=== PATIENT | female | born 1995 | race Caucasian/White ===

== ENCOUNTER 2019-05-15 16:03 | Outpatient (CLI) | payer OTHER, SELFPAY | END 2019-05-15 16:04 | disposition home or self-care (01) | PROVIDERS: Visit Provider Obstetrics & Gynecology | DX: N92.6 Irregular menstruation, unspecified (principal) | CPT/HCPCS: 36415; 84146; 84443 ==

== ENCOUNTER 2020-05-04 17:04 | Outpatient (CLI) | payer OTHER, SELFPAY | END 2020-05-04 17:05 | disposition home or self-care (01) | LOC: ANHLAB 17:08 | PROVIDERS: PCP Internal Medicine; Visit Provider Obstetrics & Gynecology | DX: O20.0 Threatened abortion (principal) | CPT/HCPCS: 36415; 84702 ==

== ENCOUNTER 2020-05-07 12:50 | Outpatient (CLI) | payer OTHER, SELFPAY | END 2020-05-07 12:51 | disposition home or self-care (01) | LOC: ANHLAB 12:52 | PROVIDERS: PCP Internal Medicine; Visit Provider Obstetrics & Gynecology | DX: O20.0 Threatened abortion (principal) | CPT/HCPCS: 36415; 84702 ==

== ENCOUNTER 2021-02-02 17:18 | Outpatient (CLI) | payer OTHER, SELFPAY ==
[2021-02-02 18:16] LABS: Influenza A QL RT-PCR Negative (Negative); Influenza B QL RT-PCR Negative (Negative); SARS-CoV-2 RNA PCR Negative (Negative)
== END 2021-02-02 17:19 | disposition home or self-care (01) ==
LOC: CHSLAB 17:21
PROVIDERS: PCP Internal Medicine; Visit Provider Internal Medicine
DX: J06.9 Acute upper respiratory infection, unspecified (principal); Z20.822 Contact with and (suspected) exposure to COVID-19
CPT/HCPCS: 87502; C9803; U0003; U0005

== ENCOUNTER 2021-07-12 12:14 | Outpatient (CLI) | payer OTHER, SELFPAY ==
[2021-07-17 08:20] LABS: Progesterone 11.1 ng/mL (***)
== END 2021-07-12 12:15 | disposition home or self-care (01) ==
LOC: ANHLAB 12:15
PROVIDERS: PCP Internal Medicine; Visit Provider Obstetrics & Gynecology
DX: N92.6 Irregular menstruation, unspecified (principal)
CPT/HCPCS: 36415; 84144

== ENCOUNTER 2022-07-24 09:53 | Emergency (ER) | payer OTHER, SELFPAY ==
--- NOTE | ~2022-07-24 | US_ITS ---
EXAMINATION: US OB <=14 wk fetus w TV DATE: 07/24/2022 11:59 INDICATION: Left lower quadrant abdominal pain. TECHNIQUE: Real-time transabdominal and transvaginal pelvic ultrasound was performed. COMPARISON: None. FINDINGS: TRANSABDOMINAL ULTRASOUND: The uterus measures 7.6 x 4.9 x 5.5 cm. TRANSVAGINAL ULTRASOUND: There is no visible intrauterine gestational sac. The endometrial complex me asures 3 mm in thickness. The right ovary measures 2.9 x 1.8 x 2.3 cm. The left ovary measures 3.3 x 2.1 x 2.8 cm. There is physiologic free fluid in the pelvis. IMPRESSION: 1. No visible intrauterine gestational sac, which may be normal in early . Spontaneous abor tion and ectopic are not excluded. Serial beta-hCGs are recommended. Reviewed, dictated and finalized at location A. IMPRESSION: 1. No visible intrauterine gestational sac, which may be normal in early pregn philip. Spontaneous and ectopic are not excluded. Serial beta- hCGs are recommended.
[2022-07-24 09:59] VITALS: BP 144/73; PULSE 88; RESP 16; TEMP 36.9; O2SAT 100
--- NOTE | 2022-07-24 10:08 | ED.GENADULT ---
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 Patient has hx of ectopic in 2020 and underwent right salpingectomy under Dr. Otto. She had a hysterosalpingogram last year and was told that her left tube had damage and scar tissue. Patient reported having pain in her left lower abdomen, fairly severe on 07/18. Pain resolved on its own. Patient had a positive home test yesterday. She reported having recurrent pain in her left lower abdomen last night, again fairly severe and lasting longer than the previous episode. Patient is concerned she may have a another ectopic . She also noticed very slight vaginal spotting last night. Denies filling pad. Denied any further bleeding today. Denies fevers, nausea, vomiting, diarrhea, constipation, urinary symptoms. Related Data Allergies Allergy/AdvReac Type Severity Reaction Status Date / Time Penicillins Allergy Intermediate HIVES Verified 07/24/22 10:45 Review of Systems Review of Systems: CONSTITUTIONAL: Denies fever, chills, or sweats. CARDIOVASCULAR: Denies chest pain. RESPIRATORY: Denies dyspnea. GASTROINTESTINAL: See HPI. GENITOURINARY: See HPI. SKIN: Denies rash or itching. MUSCULOSKELETAL: Denies back pain, joint pain, or myalgia. All systems reviewed & are unremarkable except as noted in HPI and below PMFSH Past Medical History Medical History (Updated 07/24/22 @ 13:18 by Ysabel Littlejohn PA-C) History of ectopic Surgical History Surgical History (Updated 07/24/22 @ 10:33 by Ysabel Littlejohn PA-C) History of unilateral salpingectomy Social History Social History (Updated 07/24/22 @ 13:31 by Ysabel Littlejohn PA-C) Smoking status: Never smoker Exam Narrative: GENERAL: Well appearing, morbidly obese with BMI of 41, non-toxic, in no acute distress. HEAD: Normocephalic, atraumatic. NECK: Supple. No adenopathy, no masses. RESPIRATORY: Airway patent, respirations nonlabored. Clear to auscultation bilaterally, no rales, rhonchi, wheezing. CARDIOVASCULAR: Regular rate and rhythm without murmurs, rubs, or gallops. Radial pulses 2+ and equal bilaterally. ABDOMINAL: Soft, very minimal discomfort in LLQ/lower left pelvic region, nondistended, no hepatosplenomegaly. Normoactive BS. MUSCULOSKELETAL: Moves all extremities. Strength/ROM intact without gross deformities. SKIN: Warm, dry, normal color. No rashes. NEURO: A&O X3. Speech clear. Cranial nerves II-XII grossly intact. Steady gait. No ataxic movements. PSYCHIATRIC: Appropriate mood and affect. Normal interaction. Course Vital Signs Vital signs: Vital Signs Temperature 98.4 F 07/24/22 09:59 Pulse Rate 88 07/24/22 09:59 Respiratory Rate 16 07/24/22 09:59 Blood Pressure 144/73 H 07/24/22 09:59 Pulse Oximetry 100 07/24/22 09:59 Oxygen Delivery Room Air 07/24/22 09:59 Temperature 98.4 F 07/24/22 09:59 Pulse Rate 86 07/24/22 13:47 Respiratory Rate 18 07/24/22 13:47 Blood Pressure 142/70 H 07/24/22 13:47 Pulse Oximetry 100 07/24/22 13:47 Oxygen Delivery Room Air 07/24/22 09:59 Medical Decision Making MDM Narrative Medical decision making narrative: Patient presented to ED with report of LLQ abdominal pain, + preg test at home, Hx of ectopic, reports known dysfunction of remaining fallopian tube. VSS upon arrival. Patient in no acute distress. Resting comfortably. Minimal discomfort on abdominal exam. Bedside preg + here. Beta quant 941. US obtained and no ectopic or IUP seen. No abnormal findings. Recommend serial monitoring. Patient reported very minimal bleeding last night, no further bleeding today. Will
[2022-07-24 10:40] LABS: Basophils Percent Auto 0.2 % (0.2-1.2); Eosinophils Absolute Auto 0.1 K/mm3 (0-0.3); Eosinophils Percent Auto 2.2 % (0-4.4); Immature Granulocyte Absolute 0.01 K/mm3 (0.00-0.031); Immature Granulocyte Percent A 0.2 % (0-0.5); Lymphocytes Absolute Auto 1.12 K/mm3 (0.9-3.2); Lymphocytes Percent Auto 24.9 % (18.3-44.2); Mean Corpuscular HGB Conc 30.8 g/dl (32-36); Mean Corpuscular Hemoglobin 26.3 pg (26-34); Mean Corpuscular Volume 85.5 fl (80-100); Mean Platelet Volume 10.1 fl (7.4-10.4); Monocytes Absolute Auto 0.3 K/mm3 (0.1-0.6); Monocytes Percent Auto 7.1 % (2.6-8.5); Neutrophils Absolute Auto 2.9 K/mm3 (1.3-6.7); Neutrophils Percent Auto 65.4 % (45.5-73.1); Platelet Count Result 229 k/mm3 (150-375); Red Blood Count 4.56 M/mm3 (4.2-5.4); White Blood Count 4.5 K/mm3 (4.5-10.0)
[2022-07-24 10:52] LABS: Alanine Aminotransferase 23 U/L (6-35); Albumin Level 4.3 g/dL (3.5-5.1); Alkaline Phosphatase 69 U/L (38-126); Anion Gap 5 mmol/L (8-16); Aspartate Amino Transferase 21 U/L (14-36); Bilirubin,Total 0.5 mg/dL (0.2-1.3); Blood Urea Nitrogen 9 mg/dL (7-17); Carbon Dioxide 30 mmol/L (22-30); Chloride 103 mmol/L (98-107); Estimated CRCL calculation 124 ml/min; Estimated Glomerular Filt Rate > 60; Glucose 103 mg/dL (65-110); Potassium 3.8 mmol/L (3.4-5.0); Sodium 138 mmol/L (137-145)
[2022-07-24 11:47] LABS: Appearance Urine Cloudy (Clear); Bacteria Urine Rare /hpf; Bilirubin Urine Negative (Negative); Blood Urine 3+ (Negative); Color Urine Yellow (Yellow); Glucose Urine UA Negative (Negative); Ketones Urine Negative (Negative); Leukocyte Esterase Ur Trace LEU/UL (Negative); Nitrate Urine Negative (Negative); Non Pathogenic Casts 0-2; Protein Urine Trace mg/dL (Negative); RBC Urine 21-50 /hpf (0-2); Specific Grav Ur 1.019 (1.001-1.035); Squamous Epithelial Cell Urine Moderate /hpf (Few); WBC Urine 0-5 /hpf
[2022-07-24 11:52] LABS: Add Urine Microscopic? YES
[2022-07-24 13:47] VITALS: BP 142/70; PULSE 86; RESP 18; O2SAT 100
== END 2022-07-24 13:50 | disposition home or self-care (01) ==
PROVIDERS: Emergency Provider Physician Assistant; PCP Obstetrics & Gynecology
DX: O20.0 Threatened abortion (principal); Z90.79 Acquired absence of other genital organ(s); Z3A.01 Less than 8 weeks gestation of pregnancy
CPT/HCPCS: 36415; 76801; 76817; 80053; 81001; 81025; 84702; 85025; 85461; 86850; 86900; 86901; 87086; 87088; 99284

== ENCOUNTER 2022-07-26 11:12 | Outpatient (CLI) | payer OTHER, SELFPAY | END 2022-07-26 11:13 | disposition home or self-care (01) | LOC: ANHLAB 11:14 | PROVIDERS: PCP Obstetrics & Gynecology; Visit Provider Physician Assistant | DX: O20.0 Threatened abortion (principal) | CPT/HCPCS: 36415; 84702 ==

== ENCOUNTER → 2022-07-31 13:53 | Outpatient (CLI) | payer OTHER, SELFPAY ==
--- NOTE | ~2022-07-31 | US_ITS ---
EXAMINATION: US OB <=14 wk fetus w TV DATE: 07/31/2022 14:23 INDICATION: History of ectopic . TECHNIQUE: Real-time transabdominal and transvaginal obstetric ultrasound. FINDINGS: Comparison to 07/24/2022 The uterus measures 7.7 x 3.6 x 4.3 cm. There is an intrauterine gestational sac, with pole jorge ntified. No visible intrauterine is identified. Endometrium measures 9 mm. The right ovary is unremarkable measuring 2.4 x 2.2 x 2.3 cm. The left ovary measures 3 x 1.9 x 2.8 cm and contains a complex partially cystic mass inferior margin of the ovary measuring 3.5 cm. IMPRESSION: 1. No evidence for intrauterine . Complex partially cystic mass inferior margin of the left ovary measuring up to 3.5 cm. Cannot exclude ectopic . Recommend follow-up with serial quant itative beta-hCG levels and ultrasound as clinically indicated. Reviewed, dictated and finalized at location B. IMPRESSION: 1. No evidence for intrauterine . Complex partially cystic mass inferi or margin of the left ovary measuring up to 3.5 cm. Cannot exclude ectopic preg catie. Recommend follow-up with serial quantitative beta-hCG levels and ultraso und as clinically indicated.
== END ==
PROVIDERS: PCP Internal Medicine; Visit Provider Obstetrics & Gynecology
DX: O09.11 Supervision of pregnancy with history of ectopic pregnancy, first trimester (principal); Z3A.00 Weeks of gestation of pregnancy not specified
CPT/HCPCS: 76801; 76817

== ENCOUNTER 2022-08-01 14:37 | Outpatient (CLI) | payer OTHER, SELFPAY ==
[2022-08-01 14:55] LABS: Basophils Percent Auto 0.6 % (0.2-1.2); Eosinophils Absolute Auto 0.2 K/mm3 (0-0.3); Eosinophils Percent Auto 3.2 % (0-4.4); Hematocrit 38.4 % (37.0-47.0); Immature Granulocyte Absolute 0.01 K/mm3 (0.00-0.031); Immature Granulocyte Percent A 0.1 % (0-0.5); Lymphocytes Absolute Auto 1.87 K/mm3 (0.9-3.2); Lymphocytes Percent Auto 27.3 % (18.3-44.2); Mean Corpuscular HGB Conc 31.3 g/dl (32-36); Mean Corpuscular Hemoglobin 26.4 pg (26-34); Mean Corpuscular Volume 84.6 fl (80-100); Mean Platelet Volume 10.4 fl (7.4-10.4); Monocytes Absolute Auto 0.5 K/mm3 (0.1-0.6); Monocytes Percent Auto 7.6 % (2.6-8.5); Neutrophils Absolute Auto 4.2 K/mm3 (1.3-6.7); Neutrophils Percent Auto 61.2 % (45.5-73.1); Platelet Count Result 264 k/mm3 (150-375); Red Blood Count 4.54 M/mm3 (4.2-5.4); Red Cell Distribution Width 12.9 % (11.5-14.5); White Blood Count 6.9 K/mm3 (4.5-10.0)
[2022-08-01 17:05] LABS: Alanine Aminotransferase 19 U/L (6-35); Albumin Level 4.6 g/dL (3.5-5.1); Alkaline Phosphatase 78 U/L (38-126); Anion Gap 7 mmol/L (8-16); Aspartate Amino Transferase 25 U/L (14-36); Bilirubin,Total 0.4 mg/dL (0.2-1.3); Blood Urea Nitrogen 17 mg/dL (7-17); Calcium 9.5 mg/dL (8.4-10.2); Carbon Dioxide 29 mmol/L (22-30); Chloride 101 mmol/L (98-107); Estimated Glomerular Filt Rate > 60; Glucose 94 mg/dL (65-110); Potassium 3.9 mmol/L (3.4-5.0); Sodium 137 mmol/L (137-145)
== END 2022-08-01 14:38 | disposition home or self-care (01) ==
LOC: ANHLAB 14:39
PROVIDERS: PCP Obstetrics & Gynecology; Visit Provider Obstetrics & Gynecology
DX: O00.90 Unspecified ectopic pregnancy without intrauterine pregnancy (principal)
CPT/HCPCS: 36415; 80053; 84702; 85025

== ENCOUNTER 2022-08-04 12:38 | Outpatient (CLI) | payer OTHER, SELFPAY | END 2022-08-04 12:39 | disposition home or self-care (01) | LOC: ANHLAB 12:39 | PROVIDERS: PCP Obstetrics & Gynecology; Visit Provider Obstetrics & Gynecology | DX: O00.90 Unspecified ectopic pregnancy without intrauterine pregnancy (principal); Z3A.00 Weeks of gestation of pregnancy not specified | CPT/HCPCS: 36415; 84702 ==

== ENCOUNTER → 2022-08-07 14:52 | Outpatient (CLI) | payer OTHER, SELFPAY ==
--- NOTE | ~2022-08-07 | US_ITS ---
EXAMINATION: US OB <=14 wk fetus w TV DATE: 08/07/2022 15:36 INDICATION: Unspecified ectopic TECHNIQUE: Real-time pelvic ultrasound utilizing both a transvaginal and transabdominal probe was pe rformed. The interpreting radiologist was not present for the study. COMPARISON: None. FINDINGS: The uterus measures 7.7 x 3.6 x 4.1 cm. The endometrial complex measures 4 mm diameter with no evide nt intrauterine gestational sac. The crown rump length measures , which correlates with an estimated gestational age of weeks and days. heart motion is identified measuring beats per minute (bpm) by M-mode Doppler. The right ovary measures 2.5 x 1.6 x 1.9 cm. The left ovary measures 3.1 x 1.7 x 2.6 cm. There is sma ll amount of free fluid about the left adnexa surrounding a 2.2 x 1.6 x 1.3 cm centrally cystic mass with approximately 4 mm thick echogenic wall surrounding an 11 x 6 x 9 mm anechoic central cystic reg ion which remain suspicious for ectopic . No evident yolk sac or pole within the cysti c structure. IMPRESSION: 1. No evident intrauterine gestational sac which given the persistently elevating beta-hCG levels rem ains concerning for ectopic .. 2. 2.2 cm centrally cystic mass at the left adnexa which is suspicious for ectopic although the centrally cystic region remains without evident yolk sac or pole for more definitive deter mination. Reviewed, dictated and finalized at location A. IMPRESSION: 1. No evident intrauterine gestational sac which given the persistently elevati ng beta-hCG levels remains concerning for ectopic .. 2. 2.2 cm centrally cystic mass at the left adnexa which is suspicious for ecto pic although the centrally cystic region remains without evident yolk sac or pole for more definitive determination.
== END ==
PROVIDERS: PCP Internal Medicine; Visit Provider Obstetrics & Gynecology
DX: O00.90 Unspecified ectopic pregnancy without intrauterine pregnancy (principal)
CPT/HCPCS: 76801; 76817

== ENCOUNTER 2022-08-08 12:50 | Outpatient (CLI) | payer OTHER, SELFPAY | END 2022-08-08 12:51 | disposition home or self-care (01) | LOC: ANHLAB 12:51 | PROVIDERS: PCP Internal Medicine; Visit Provider Obstetrics & Gynecology | DX: O00.90 Unspecified ectopic pregnancy without intrauterine pregnancy (principal); Z3A.00 Weeks of gestation of pregnancy not specified | CPT/HCPCS: 36415; 84702 ==

== ENCOUNTER 2022-08-12 12:00 | Outpatient (CLI) | payer OTHER, SELFPAY | END 2022-08-12 12:01 | disposition home or self-care (01) | LOC: ANHLAB 12:01 | PROVIDERS: PCP Internal Medicine; Visit Provider Obstetrics & Gynecology | DX: O00.90 Unspecified ectopic pregnancy without intrauterine pregnancy (principal); Z3A.00 Weeks of gestation of pregnancy not specified | CPT/HCPCS: 36415; 84702 ==

== ENCOUNTER 2022-08-18 13:42 | Outpatient (CLI) | payer OTHER, SELFPAY | END 2022-08-18 13:43 | disposition home or self-care (01) | LOC: ANHLAB 13:44 | PROVIDERS: PCP Internal Medicine; Visit Provider Obstetrics & Gynecology | DX: O00.90 Unspecified ectopic pregnancy without intrauterine pregnancy (principal) | CPT/HCPCS: 36415; 84702 ==

== ENCOUNTER 2022-08-24 12:44 | Outpatient (CLI) | payer OTHER, SELFPAY | END 2022-08-24 12:45 | disposition home or self-care (01) | LOC: ANHLAB 12:45 | PROVIDERS: PCP Internal Medicine; Visit Provider Obstetrics & Gynecology | DX: O00.90 Unspecified ectopic pregnancy without intrauterine pregnancy (principal) | CPT/HCPCS: 36415; 84702 ==

== ENCOUNTER 2022-09-11 11:57 | Outpatient (CLI) | payer OTHER, SELFPAY ==
[2022-09-11 12:49] LABS: Beta HCG Quantitative 56.85 mIU/ML
== END 2022-09-11 11:58 | disposition home or self-care (01) ==
LOC: ANHLAB 11:57
PROVIDERS: PCP Internal Medicine; Visit Provider Obstetrics & Gynecology
DX: O00.90 Unspecified ectopic pregnancy without intrauterine pregnancy (principal)
CPT/HCPCS: 36415; 84702